=== PATIENT | female | born 1950 | race Caucasian/White ===

== ENCOUNTER → 2021-02-13 | Outpatient (CLI) | payer MEDICARE, OTHER | LOC: KOH-I 15:28 | DX: M25.561 Pain in right knee (principal); M17.11 Unilateral primary osteoarthritis, right knee | CPT/HCPCS: 73562 ==

== ENCOUNTER → 2021-09-03 | Outpatient (CLI) | payer MEDICARE, OTHER | LOC: KOH-I 16:06 | DX: M79.89 Other specified soft tissue disorders (principal); M19.012 Primary osteoarthritis, left shoulder | CPT/HCPCS: 73030 ==

== ENCOUNTER → 2021-12-16 | Outpatient (CLI) | payer MEDICARE, OTHER ==
[~2021-12-16] MED LIST: COLLAGEN POWDER; FLUOCINONIDE; GLUCOSAMINE/CHONDROI; LIPITOR TAB 1010 MG PO; MULTIPLE VITAM1 EAC1 PO; QUINAPRIL-HCTZ1 EAC1 PO; VIVISCAL; [UNRECOGNIZED DRUG - CODE]
[2021-12-16 11:09] LABS: HEMOGLOBIN 13.1 gm/dl (12.3-15.3); RED BLOOD COUNT 3.93 M/UL (4.00-5.10)
[2021-12-16 11:35] LABS: BUN/CREATININE RATIO 29 (0-10)
== END ==
LOC: EDSTATUS 10:00 → OPSV2 10:00
PROVIDERS: Orthopaedic Surgery
DX: Z01.818 Encounter for other preprocedural examination (principal); M17.11 Unilateral primary osteoarthritis, right knee
CPT/HCPCS: 36415; 80048; 85025; 93005

== ENCOUNTER → 2022-01-05 | Outpatient (CLI) | payer MEDICARE, OTHER ==
[~2022-01-05] MED LIST changes: +ASPIR-TRIN325 MG PO; +BIOTIN5 M1 PO; +CALCIUM 600 +1 EA13 PO; +COLLAGEN HYDROLY1 GM PO; -COLLAGEN POWDER; -GLUCOSAMINE/CHONDROI; +HYDROCODON-ACE1 EAC2 PO; +MAGNESIUM500 MG PO; +SV GLUCOSAMINE PO; +VITAMIN D310 MC4 PO; -[UNRECOGNIZED DRUG - CODE]
[2022-01-05 12:36] LABS: BUN/CREATININE RATIO 39 (0-10)
== END ==
LOC: LAB 11:12
PROVIDERS: Orthopaedic Surgery
DX: Z01.812 Encounter for preprocedural laboratory examination (principal)
CPT/HCPCS: 36415; 80048; 86850; 86900; 86901

== ENCOUNTER 2022-01-06 05:29 | Day surgery (SDC) | payer MEDICARE, OTHER ==
[~2022-01-06] VITALS: Ht 160 cm; Wt 72.6 kg
[~2022-01-06 05:29] MED LIST changes: -ASPIR-TRIN325 MG PO; -BIOTIN5 M1 PO; -HYDROCODON-ACE1 EAC2 PO; -MAGNESIUM500 MG PO; -VITAMIN D310 MC4 PO
[2022-01-06] MEDS ORDERED: MAGNESIUM500 MG PO (06:39)
[2022-01-06] MEDS ORDERED: VITAMIN D310 MC4 PO (06:40)
[2022-01-06] MEDS ORDERED: BIOTIN5 M1 PO (06:42)
[2022-01-07] MEDS ORDERED: ASPIR-TRIN325 MG PO (07:26)
[2022-01-07] MEDS ORDERED: HYDROCODON-ACE1 EAC2 PO (07:26)
== END 2022-01-07 12:47 | disposition home or self-care (01) ==
LOC: OR 05:29 → M/S 11:36 → OR 01-07 12:47
DX: M17.11 Unilateral primary osteoarthritis, right knee (principal); G89.18 Other acute postprocedural pain; I10 Essential (primary) hypertension; E78.5 Hyperlipidemia, unspecified; Z87.891 Personal history of nicotine dependence; Z79.82 Long term (current) use of aspirin; Z79.899 Other long term (current) drug therapy
CPT/HCPCS: 73560; 76000; 97116; 97116-GP-CQ; 97162; 97166; 97530-GP-CQ; 97535; C1713; C1776; J0690; J1100; J1170; J1200; J1885; J2274; J2405; J2704; J2795; J3010; J3475